=== PATIENT | female | born 1995 | race Caucasian/White ===

== ENCOUNTER 2022-12-29 11:01 | Emergency (ER) | payer OTHER, SELFPAY ==
[2022-12-29 11:19] VITALS: BP 147/105; PULSE 77; RESP 20; TEMP 36.5; O2SAT 97
[2022-12-29 12:22] LABS: Basophils Absolute Auto 0.1 K/mm3 (0.0-0.1); Basophils Percent Auto 0.4 % (0.2-1.2); Eosinophils Absolute Auto 0.1 K/mm3 (0-0.3); Eosinophils Percent Auto 0.7 % (0-4.4); Hematocrit 44.1 % (37.0-47.0); Hemoglobin 14.9 g/dL (12.0-15.0); Immature Granulocyte Percent A 0.8 % (0-0.5); Lymphocytes Absolute Auto 2.19 K/mm3 (0.9-3.2); Lymphocytes Percent Auto 17.8 % (18.3-44.2); Mean Corpuscular HGB Conc 33.8 g/dl (32-36); Mean Corpuscular Hemoglobin 31.4 pg (26-34); Monocytes Absolute Auto 0.6 K/mm3 (0.1-0.6); Monocytes Percent Auto 5.1 % (2.6-8.5); Neutrophils Absolute Auto 9.2 K/mm3 (1.3-6.7); Neutrophils Percent Auto 75.2 % (45.5-73.1); Platelet Count Result 323 k/mm3 (150-375); Red Blood Count 4.74 M/mm3 (4.2-5.4); Red Cell Distribution Width 12.9 % (11.5-14.5); White Blood Count 12.3 K/mm3 (4.5-10.0)
[2022-12-29 12:27] VITALS: BP 137/77; PULSE 75; PULSE 78; RESP 20; O2SAT 100
[2022-12-29 12:28] VITALS: BP 134/96; BP 163/89; PULSE 79; PULSE 82
[2022-12-29 12:31] LABS: Alanine Aminotransferase 48 U/L (6-35); Alkaline Phosphatase 103 U/L (38-126); Anion Gap 12 mmol/L (8-16); Aspartate Amino Transferase 37 U/L (14-36); Bilirubin,Total 0.5 mg/dL (0.2-1.3); Blood Urea Nitrogen 11 mg/dL (7-17); Calcium 9.3 mg/dL (8.4-10.2); Carbon Dioxide 20 mmol/L (22-30); Chloride 105 mmol/L (98-107); Estimated Glomerular Filt Rate > 60; Glucose 130 mg/dL (65-110); Lipase 109 U/L (23-300); Potassium 3.7 mmol/L (3.4-5.0); Sodium 137 mmol/L (137-145)
[2022-12-29] MEDS: ONDANSETRON INJ 4 MG/2 ML VIAL IV PUSH (12:32)
[2022-12-29] MEDS: SODIUM CHLORIDE 0.9% IV 1,000 ML 999 ML IV CONT ×2 (12:32→13:38)
[2022-12-29] MEDS: Please add drug allergy info to patient profile. 1 EACH XX (12:32)
[2022-12-29 12:40] LABS: Appearance Urine Clear (Clear); Bilirubin Urine Negative (Negative); Blood Urine Negative (Negative); Color Urine Yellow (Yellow); Glucose Urine UA Negative (Negative); Ketones Urine Negative (Negative); Leukocyte Esterase Ur Negative LEU/UL (Negative); Nitrate Urine Negative (Negative); Protein Urine Negative (Negative); Specific Grav Ur 1.021 (1.001-1.035); Urobilinogen Urine 0.2 mg/dL (<2.0)
[2022-12-29] MEDS: HALOPERIDOL LACTATE 5 MG/ML VIAL IM (12:44)
[2022-12-29 12:49] LABS: Add Urine Microscopic? NO
--- NOTE | 2022-12-29 13:02 | ED.NAVMDI ---
HPI - Nausea/Vomiting/Diarrhea General Chief complaint: Nausea/Vomiting/Diarrhea Stated complaint: nausea, vomitting, diarrhea Time Seen by Provider: 12/29/22 11:58 History of Present Illness HPI Narrative: Patient is a 27-year-old female presenting with vomiting and diarrhea. Patient states that for the last several hours she has had intractable vomiting and diffuse abdominal pain. States that she had an episode of diarrhea earlier but then she had a normal bowel movement. Patient states that she is currently panicking. States that she feels a little short of breath when she is vomiting but she denies chest pain, back pain, flank pain, fevers or chills, dysuria, hematuria. Related Data Allergies Allergy/AdvReac Type Severity Reaction Status Date / Time Penicillins Allergy Rash Verified 12/29/22 12:20 Review of Systems Review of Systems: All systems reviewed & are unremarkable except as noted in HPI and below Exam Narrative: GENERAL: Tearful, anxious, distressed secondary to nausea, repeatedly stating that she is panicking HEAD: Normocephalic, atraumatic. EYES: PERRLA and EOMI. ENT: Mucous membranes moist. NECK: Supple. CHEST: Clear to auscultation. No respiratory distress. HEART: Regular rate and rhythm ABDOMEN: Soft, mild diffuse tenderness, no focal tenderness, no guarding or rebound EXTREMITIES: Normal range of motion. No edema. SKIN: Warm, dry, no rash. NEURO: No focal deficits. Alert and oriented x3. PSYCH: Anxious and tearful Course Vital Signs Vital signs: Vital Signs Temperature 97.7 F 12/29/22 11:19 Pulse Rate 77 12/29/22 11:19 Respiratory Rate 20 12/29/22 11:19 Blood Pressure 147/105 H 12/29/22 11:19 Pulse Oximetry 97 12/29/22 11:19 Oxygen Delivery Room Air 12/29/22 11:19 Temperature 97.7 F 12/29/22 11:19 Pulse Rate 71 12/29/22 15:52 Respiratory Rate 15 12/29/22 15:52 Blood Pressure 134/82 12/29/22 15:52 Pulse Oximetry 97 12/29/22 15:52 Oxygen Delivery Room Air 12/29/22 11:19 MDM - Nausea/Vomiting/Diarrhea MDM Narrative Medical decision making narrative: Patient is a 27-year-old female presenting with vomiting, diarrhea, diffuse abdominal pain. Vital stable. Exam remarkable for the above. Patient was given Zofran but continued to vomit so then she was given a dose of IM Haldol. States that she was feeling panicky so she was given a dose of Benadryl. Fluids are ongoing. Blood work is reassuring. Mild leukocytosis. Normal lipase. UA is not infected. On reevaluation, the patient is sleeping comfortably. She has not had any further episodes of emesis. Feel she is safe for outpatient management. We will send in for some Zofran and advised PCP follow-up. Appropriate return precautions given. Patient voiced understanding and is agreeable with plan. Discharged in stable condition. Differential Diagnosis Differential diagnosis: Likely food poisoning, gastroenteritis and dehydration Medical Records Attestation: I reviewed the patient's medical records. Lab Data Attestation: I reviewed the patient's lab results. 12/29/22 12:14 12/29/22 12:14 Labs: Lab Results 12/29/22 12/29/22 Range/Units 12:14 12:33 WBC 12.3 H (4.5-10.0) K/mm3 RBC 4.74 (4.2-5.4) M/mm3 Hgb 14.9 (12.0-15.0) g/dL Hct 44.1 (37.0-47.0) % MCV 93.0 (80-100) fl MCH 31.4 (26-34) pg MCHC 33.8 (32-36) g/dl RDW 12.9 (11.5-14.5) % Plt Count 323 (150-375) k/mm3 MPV 10.0 (7.4-10.4) fl Immature Gran % (Auto) 0.8 H (0-0.5) % Neut % (Auto) 75.2 H (45.5-73.1) % Lymph % (Auto) 17.8 L (18.3-44.2) % [place] % (Auto) 5.1 (2.6-8.5) % Eos % (Auto) 0.7 (0-4.4) % Baso % (Auto) 0.4 (0.2-1.2) % Lymph # (Auto) 2.19 (0.9-3.2) K/mm3 [place] # (Auto) 0.6 (0.1-0.6) K/mm3 Eos # (Auto) 0.1 (0-0.3) K/mm3 Baso # (Auto) 0.1 (0.0-0.1) K/mm3 Abs Immat Gran (auto) 0.10 H (0.00-0.031) K/mm3 Absolute N
[2022-12-29] MEDS: diphenhydrAMINE HCl INJ 50 MG/ML VIAL IV PUSH (13:38)
[2022-12-29 14:40] VITALS: BP 128/86; PULSE 78; RESP 19; O2SAT 99
[2022-12-29 15:52] VITALS: BP 134/82; PULSE 71; RESP 15; O2SAT 97
== END 2022-12-29 16:29 | disposition home or self-care (01) ==
PROVIDERS: Emergency Medicine; Emergency Provider Emergency Medicine
DX: K52.9 Noninfective gastroenteritis and colitis, unspecified (principal)
CPT/HCPCS: 36415; 80053; 81003; 81025; 83690; 85025; 96361; 96372; 96374; 96375; 99284; J1200; J1630; J2405; J7030